=== PATIENT | male | born 1960 | race Caucasian/White ===

== ENCOUNTER 2022-08-15 11:58 | Outpatient (CLI) | payer OTHER, SELFPAY ==
--- OUTSIDE RECORDS SUMMARY | 2022-08-15 12:04 | XMS_ITS | Continuity of Care Document ---
Author Name [facility] Care Team Providers Care Mounting Inspector Name Role Phone [facility] Unavailable Unavailable Allergies, Adverse Reactions, Alerts Substance Category Reaction Severity Reaction type Status Date Reported Comments Source penicillins Drug Allergy Active 3 [facility] Family Medicine FM1,[facility] Family Medicine FM6
== END 2022-08-15 11:59 | disposition home or self-care (01) ==
PROVIDERS: PCP Family Medicine; Visit Provider Family Medicine
DX: Z00.00 Encounter for general adult medical examination without abnormal findings (principal); I10 Essential (primary) hypertension; Z12.5 Encounter for screening for malignant neoplasm of prostate; Z11.59 Encounter for screening for other viral diseases; Z13.6 Encounter for screening for cardiovascular disorders
CPT/HCPCS: 80053; 80061; 84153; 86803

== ENCOUNTER 2023-10-16 08:07 | Outpatient (CLI) | payer MEDICARE, SELFPAY ==
--- OUTSIDE RECORDS SUMMARY | 2023-10-16 08:10 | XMS_ITS | Continuity of Care Document ---
Author Organization [facility] Address [address] [place] [address] Phone Care Team Providers Care Pipe Layer Helper Name Role Phone Best SILVERMAN, Amijohnathan Unavailable Unavailable Allergies, Adverse Reactions, Alerts Substance Reaction Status Criticality Penicillins Active No Information Medications Medication Instructions Dosage Effective Dates (start - stop) Status Comments ACETAMINOPHEN (unknown strength) Not Available - Active Procedures Procedure Date Office/Outpatient Visit,Est, Mod 2018 X-Ray Exam Lower Spine 2-3 Views 2018 Postop Followup Visit X-Ray Exam Lower Spine 2-3 Views 2018 Pa Arthdsis Post/Posterolatrl/Postinterb ney Lumbar Remove Lumbar Spine Lamina, 1 Seg Pa Assist Remove Added Spine Lamina, 1 S eg Pa Assist Insert Spine Fixation, Posteri or PA Assist Insert interbody cage w/fusion Arthdsis Post/Posterolatrl/Postinterbody Lumbar Remove Lumbar Spine Lamina, 1 Seg Remove Added Spine Lamina, 1 Seg 2018 Insert Spine Fixation, Posterior 2018 Insert interbody cage w/fusion 19 Allograft, Spine Surg, Morselized Autograft, Spine Surgery, Local 019 Office/Outpatient Visit,New, Low 2018 X-Ray Exam Lwr Spine, Min 4 Views Feb-04 -2019 Office/Outpatient Visit,New, Mod 2014 Office/outpatient visit,new, mod 2010 Advance Directives Directive Yes / No Effective Date File Name No Information Encounters Encounter Description Practice Location Reason(s) For Visit Diagnoses Date Provider Providers Copied on Encounter [facility], [address], [place], [place], [id number], [place] tel:[phone] [facility] No Information 0 Mehbod Amir. [facility], [address], [place], [place], [id number] , [place]. tel:[phone] Office/Outpa tient Visit,Est, Mod [facility], [address], [place], [place], [address], [place] tel:[phone] [facility] Encounter for other specified surgical aftercare 9 Mehbod Amir. [facility], [address], [place], [place], [id number] , [place]. [phone] Referring Provider: [place] [address] [place], [address]. tel:[phone] [facility], [address], [place], [place], [id number], [place] tel:[phone] [facility] Encounter for other specified surgical aftercare 9 Mehbod Amir. [facility], [address], [place], [place], [address] , [place]. [phone] [facility]: [facility] [address] [place], [address]. tel:[phone] [facility], [address], [place], [place], [id number], [place] tel:[phone] [facility] No Information 9 Adrian Butts. [address] [place] [address] [address], [place], [place], [id number] , [place]. tel: [phone] Referring Provider: Amauri Bliss, [facility] [address] [place], [address]. tel:[phone] [facility], [address], [place], [place], [id number], [place] tel:[phone] [facility] No Information 9 Mehbod Amir. [facility], [address], [place], [place], [id number] , [place]. tel: [phone] Referring Provider: Amauri Bliss, [address], [address]. tel:[phone] Office/Outpa tient Visit,New, Low [facility], [address], [place], [place], [address], [place] tel:[phone] [facility] Spondylolisthe sis, lumbar region Fe 9 Mehbod Amir. [facility], [address], [place], [place], [address] , [place]. tel: [phone] Referring Provider: Amauri Bliss, [facility] [place], [address]. tel:[phone] Office/Outpa tient Visit,New, Mod [facility], [address], [place], [place], [address], [place] tel:[phone] [facility] OVERWEIGHTHype rtension, UnspecifiedAcq uired spondylolisthe sis 5 Mehbod Amir. [facility], [address], [place], [place], [address] , [place]. tel: [phone] Office/outpa tient visit,new, mod Z [facility], [address], [place], [address], [place] tel:[phone] [facility] No Information Jessica Sparrow. [facility], [address], [place], [place], [address] , [place]. [phone] Referring Provider: Fernanda Savage [address] [facility], [place], [address]. tel:[phone] Family History Family Member Type Diagnosis Age At Onset No Information Payers Payer name Insurance type Covered libertarian ID Authorbeatriza tiallen(s) [facility] [id number] Social History Type Description Quantity Date Captured Comments Sex Male Smoking Status No Information Chief Complaint And Reason For Visit No Information Reason For Referral Reason For Referral No Information Plan Of Treatment Date Type Action Status Future Order: Radiology Order AP -Vfg-[id number]-Gzw Lum (APLatFlExL), Ordered on: Ordered History Of Present Illness Encounter Date Complaint History Of Prese nt Illness No Information Functional Status Date Functional Assessmen t No Information Instructions Date Instruction Additional Infor loreta Weight Management Related to Ove yonathan Exercise education Related to Un specified Essential Hypertension Assessments Type Assessment Date No Information Patient Care Teams Name Effective Dates (start - stop) Status Members No Information
== END 2023-10-16 08:08 | disposition home or self-care (01) ==
PROVIDERS: PCP Family Medicine; Visit Provider Family Medicine
DX: E78.5 Hyperlipidemia, unspecified (principal); I10 Essential (primary) hypertension; Z12.5 Encounter for screening for malignant neoplasm of prostate
CPT/HCPCS: 80053; 80061; 82043; 82570; G0103

== ENCOUNTER 2023-10-25 13:48 | Outpatient (RCR) | payer MEDICARE, SELFPAY ==
--- NOTE | 2023-10-25 15:31 | PT.OPE ---
[facility] PT [facility] Outpatient Eval Start: 10/25/23 12:52 Freq: Status: Active Protocol: Document 10/25/23 15:29 CJT (Rec: 10/25/23 15:31 CJT [id number]) E-signed By Keyshawn Concepcion PT Physical Therapy Outpatient Evaluation Insurance Information Recert Due Date 01/23/24 Insurance Name Medicare B Medical Diagnosis M17.12 - L knee pain Treating Diagnosis M17.12 - L knee pain Referring Miranda Brown MD Subjective Subjective Pt presents with complaints of L knee pain. 6 weeks ago, Pt reports he was playing trucks with grandson on the floor and knee pain started after this. Also was having knee pain with walking at this time so discontinued walking. Was told arthritis may be developing per doctor. Pt as not had knee pain for a week now. Pt lower back is now hurting. Has hx of spinal fusion in 2019. Walks 2.5-3 miles daily and has not in the past month. Pt goal is to start walking again with no pain. Patient notices small bump on the medial L knee that is tender to palpation. Also reports hip soreness. Pain Comments 0/10 today pain at its worst with walking 3 weeks ago. Date of Last Physician Visit 10/16/23 Current Work Status Retired Preferred Name Casimiro Precautions Therapy Limitations/Systems Review Not Limited Objective Other/Pertinent Objective Lumbar ROM Extension - WNL Flexion - WNL (touching big toe) R/L Side Bend - WNL R/L Rotation - NT R Hip ROM Flexion - WNL IR/ER - WNL Extension - WNL L Hip ROM Flexion - WNL IR/ER - WNL Extension - WNL R knee ROM - 4-0-151 L knee ROM - 3-0-150 R Hip Strength Flexion - 4/5 MMT Abduction - 5/5 MMT IR - 5/5 MMT ER - 5/5 MMT Extension - 4+/5 MMT L Hip Strength Flexion - 4/5 MMT Abduction - 5/5 MMT IR - 5/5 MMT ER - 5/5 MMT Extension - 4+/5 MMT R knee Extension - 5/5 MMT R Knee Flexion - 5/5 MMT L knee Extension - 5/5 MMT L knee Flexion - 5/5 MMT R ankle DF - 5/5 MMT L ankle DF - 5/5 MMT Palpation: pt reports pain/ tenderness with palpation to the L medial femoral condyle Special Testing SLR: neg Debi's: pos Hamstring: negative Assessment Assessment/Impression Casimiro is a very pleasant 63 year old male who presents to our clinic for evaluation and treatment of L knee pain. Patient had no symptoms or pain in knee upon arrival of appointment and remained asymptomatic throughout evaluation. Pts LE strength is well within normal limits, testing 5/5 MMT in most planes this date (see objective). Pts anterior thigh is a bit tight with positive Debi's test bilaterally. Pt did struggle with walking lunges this date so encouraged use of hands for balance when performing at home. Exercises were given to address strength deficits and decrease quad tightness. Pt recommended to try exercises given for a few weeks and return if pain increased or there were any changes. Pt gives verbal understanding to these instructions. The nature of the pts condition was explained and all questions were answered to the pts satisfaction. Skilled PT services are medically necessary to address deficits and return patient to highest level of function. Recommend physical therapy sessions 1/ week for 4 weeks. Pt agrees with this plan and notes that he would prefer to return as needed. If pt elects to not return to PT in next 30 days, this note will serve as pts d/ c note. Printout of HEP was given for I completion and pt gives verbal understanding of each exercise. Co-Signed [place] [id number] Primary Functional Limitations Walking Plan of Care Rehabilitation Potential Excellent Physical Therapy Goals STG: To be completed in 3 weeks: 1. Patient will report absence of L knee pain with ambulation, so that he may go for walks for light exercise with his . LTG - To be completed in 4 weeks: 1. Patient will be I with HEP in order to I manage progression of symptoms. Treatment Plan/Direct Interventions Joint Mobilization,Manual Therapy,Therapeutic Exercises Frequency/Duration 1/week for 4 weeks Patient Will Be Discharged From Therapy Completion of LTG(s),Skills Plateau,Independent w/HEP, Independently Progressing Evaluation Billing Untimed Code Treatment Minutes 40 PT Eval No Charge No Complexity Low Student Supervision Licensed PT Directed/Approved Treatment, Reviewed POC with Patient,Made Contact with Patient, Participated in Treatment Documentation Reviewed By Gas Blender Yes Certification Information Initial Certification Date 10/25/23 Ending Certification Date 01/23/24 Provider Signature Required Yes Provider Signature Shows Agreement With POC & Medical Necessity Physician NPI Number Write NPI# Here Physician Comment/Change : Physician Signature & Date Requested Please Sign/Date Here
== END 2023-12-28 13:57 | disposition home or self-care (01) ==
PROVIDERS: PCP Family Medicine; Visit Provider Family Medicine
DX: M25.562 Pain in left knee (principal); Z51.89 Encounter for other specified aftercare
CPT/HCPCS: 97110; 97161

== ENCOUNTER 2024-11-11 13:32 | Outpatient (CLI) | payer MEDICARE, SELFPAY | END 2024-11-11 13:33 | disposition home or self-care (01) | PROVIDERS: PCP Family Medicine; Visit Provider Family Medicine | DX: I10 Essential (primary) hypertension (principal); E78.5 Hyperlipidemia, unspecified; N52.9 Male erectile dysfunction, unspecified; G47.00 Insomnia, unspecified; Z12.5 Encounter for screening for malignant neoplasm of prostate | CPT/HCPCS: 80053; 80061; 82043; 82570; G0103 ==

== ENCOUNTER 2024-11-25 09:45 | Outpatient (CLI) | payer MEDICARE, SELFPAY ==
--- NOTE | 2024-11-25 10:00 | CRLHL7_ITS ---
For Patients: As a result of the Century Cures Act, medical imaging exams and procedure reports are released immediately into your electronic medical record. You may view this report before your referring provider. If you have questions, please contact your health care provider. INDICATION: Lung cancer screening. History of smoking. TECHNIQUE: Low-dose lung cancer screening non-contrast CT chest. Dose reduction techniques were used. COMPARISON: None. FINDINGS: NODULES: 4 millimeter nodule left lower lobe, 3/107. LUNGS AND PLEURA: Biapical pleural-parenchymal scarring. MEDIASTINUM: No adenopathy. CORONARY ARTERY CALCIFICATION: Minimal. LIMITED UPPER ABDOMEN: Small stones in the gallbladder. MUSCULOSKELETAL: No fracture. IMPRESSION: 4 millimeter left lower lobe pulmonary nodule. LUNG-RADS CATEGORY: 2: Benign. RADIOLOGIST RECOMMENDATION: Continue annual screening, if eligible, with low-dose CT chest in 12 months. Please note that all CT scans at this facility use dose modulation, iterative reconstruction, and/or weight-based dosing when appropriate to reduce radiation dose to as low as reasonably achievable. Dictated by Yony Curry MD @ 11/25/2024 11:09:00 AM (Electronically Signed)
== END 2024-11-25 09:46 | disposition home or self-care (01) ==
LOC: CT 09:46
PROVIDERS: PCP Family Medicine; Visit Provider Family Medicine
DX: Z12.2 Encounter for screening for malignant neoplasm of respiratory organs (principal); R91.8 Other nonspecific abnormal finding of lung field; Z72.0 Tobacco use; E78.5 Hyperlipidemia, unspecified; I10 Essential (primary) hypertension
CPT/HCPCS: 71271

== ENCOUNTER 2024-12-03 13:45 | Outpatient (CLI) | payer MEDICARE, SELFPAY | END 2024-12-03 13:46 | disposition home or self-care (01) | LOC: FRMREF 13:46 | PROVIDERS: PCP Family Medicine; Visit Provider Physician Assistant Medical | DX: R19.7 Diarrhea, unspecified (principal) | CPT/HCPCS: 80053 ==

== ENCOUNTER 2024-12-04 09:18 | Outpatient (CLI) | payer MEDICARE, SELFPAY | END 2024-12-04 09:19 | disposition home or self-care (01) | LOC: NFLDREF 12-05 02:58 | PROVIDERS: PCP Family Medicine; Referring Provider Family Medicine; Visit Provider Family Medicine | DX: R19.7 Diarrhea, unspecified (principal) | CPT/HCPCS: 87493; 87505; 87507 ==

== ENCOUNTER 2024-12-18 13:00 | Outpatient (CLI) | payer MEDICARE, SELFPAY | END 2024-12-18 13:01 | disposition home or self-care (01) | LOC: NFLDREF 12-23 14:39 | PROVIDERS: PCP Family Medicine; Referring Provider Family Medicine; Visit Provider Nurse Practitioner Family | DX: R19.7 Diarrhea, unspecified (principal); A07.4 Cyclosporiasis | CPT/HCPCS: 87493 ==

== ENCOUNTER 2025-02-28 09:58 | Emergency (ER) | payer MEDICARE, SELFPAY ==
[2025-02-28] VITALS (12 sets, daily range): BP systolic 155–187; BP diastolic 88–114; PULSE 61–76; RESP 18; TEMP 36.8; O2SAT 95–98; BMI 26.9
--- OUTSIDE RECORDS SUMMARY | 2025-02-28 10:01 | XMS_ITS | Clinical Summary ---
Author Organization [facility] Address [address] [place] [address] Care Team Providers Care Supervisor Customer Services Name Role Phone Amauri Galdamez MD Primary Care Provider [phone] Allergies Active Allergy Reactions Criticality Noted Date Comments Penicillins *Unknown - Childhood Rxn 2014 Medications oxyCODONE (ROXICODONE) 5 mg immediate release tabletIndicati ons:Post-op pain Take 1-2 tablets by mouth every 4 hours if needed for Pain (one tab for pain 3-6 out of 10. 2 tabs for pain 7-10 out of 10.) 60 tablet 10/18/2018 9:19 AM CDT 9 Active acetaminophen (TYLENOL) 325 mg tabletIndicati ons:Post-op pain Take 2 tablets by mouth every 6 hours. Max acetaminophen dose: 4000mg in 24 hrs. 100 tablet 10/18/2018 9:19 AM CDT 9 Active sennosides-doc usate, 8.6-50 mg, (SENOKOT S) 8.6-50 mg tabletIndicati ons:Constipati on due to opioid therapy Take 1 tablet by mouth 2 times daily. Take for as long as needing narcotic medicines for pain control. Stop if loose stools develop. 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 ( decreased vision ) 199110/02/2018 Overview (10/02/2018): c Multiple lipomas 10/02/2018 Former smoker quit 201210/02/2018 Lumbar spinal stenosis 10/27/2014 Spondylolisthesis at L4-L5 level 10/27/2014 Lumbar radicular pain 10/27/2014 THANH 03/16/2010 on cpap machine 03/20/2010 Immunizations Immunization Administration Dates Next Due Tdap 05/15/2009 Family History Medical History Relation Name Comments Other Father suarez's lung 8 6 Hypertension Mother Relation Name Status Comments Father Mother Social History Tobacco Use Types Packs/Day Years Used Date Smoking Tobacco: Never Smokeless Tobacco: Never Tobacco Cessation:Counseling Given: Yes Alcohol Use Standard Drinks/Week Comments Yes 0 (1 standard drink = 0.6 oz pur e alcohol) 12 pack/year. 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 Gender Identity Not on file Sexual Orientation Not on file Obstetrics History Last Filed Vital Signs Vital Sign Reading Time Taken Comments Blood Pressure 124/63 10/18/2018 7:49 AM CDT Pulse 72 10/18/2018 7:49 AM CDT Temperature 36.8 C (98.3 F) 10/18/2018 7:49 AM CDT Respiratory Rate 16 10/18/2018 7:49 AM CDT Oxygen Saturation 90% 10/18/2018 7:49 AM CDT Inhaled Oxygen Concentration - - Weight 100.4 kg (221 lb 5.5 oz) 10/16/2018 6:23 AM CDT Height 185.4 cm (6' 1) 10/16/2018 6:23 AM CDT Body Mass Index 29.2 10/16/2018 6:23 AM CDT Plan of Treatment Health Maintenance Due Date Last Done Comments Hepatitis C screening for ag e 18-79 1976 Colonoscopy through age 75 09/30/2003 Lipids for age 45-75 09/30/2003 Pneumococcal series for age 50+ (1 of 1 - PCV) 2008 Zoster (shingles) series for age 50+ (1 of 2) 2008 Depression screening for age 12+ 12/05/2017 12/05/2016 Tetanus booster 05/15/2019 05/15/2009 BMI (ht and wt on same day) for age 18+ 10/03/2019 10/02/2018, 12/05/2016 COVID-19 vaccine series (2023- season) 2025 Influenza Vaccine (#1) 2025 RSV vaccine for adults or (1 - 1-dose 75+ series) 2033 Hepatitis B series for 19+ Aged Out N o longer eligible based on patient's age to complete this topic Medical Devices Implanted Type Area General Milling Superintendent Device Identifier Shelf Expiration Date Model / Serial / Lot [id number] 1-4mm 30cc Med[employer]onic Chips Canclls Freeze Dried Implanted:Qty: 1 on 10/16/2018 by Trista Jewell MD at [facility] Explanted:at [facility] (Quantity not on file) Spine [employer] Spine/Ortho 03/29/2023 [id number] / [id number] / [id number] ne Matrix 3cc [employer] Dbf Putty Dbm Implanted:Qty: 1 on 10/16/2018 by Trista Jewell MD at [facility] Explanted:at [facility] (Quantity not on file) Spine [employer] Spine/Ortho 06/13/2020 [id number] / [id number] / Spacer Lmbr [id number] [place] Convex Stra Tlif - [id number] Implanted:Qty: 1 on 10/16/2018 by Trista Jewell MD at [facility] Spine [employer] 12/07/2025 [id number] / / [id number] Screw Lmbr Post 6.5x45mm Vitality Va - [id number] Implanted:Qty: 4 on 10/16/2018 by Trista Jewell MD at [facility] Spine [employer] Spine [id number] 75# / / Set Screw Lmbr 5.5-6mm Vitality Torque - [id number] Implanted:Qty: 4 on 10/16/2018 by Trista Jewell MD at [facility] Spine [employer] Spine [id number] 01# / / Javan Lmbr 45x5.5mm Vitality Cvd Titnm - [id number] Implanted:Qty: 2 on 10/16/2018 by Trista Jewell MD at [facility] Spine [employer] Spine [id number] 06# / / Cnnctr Lmbr 51-70mmx5.5 Wide Vitality Transverse Adjust - [id number] Implanted:Qty: 1 on 10/16/2018 by Trista Jewell MD at [facility] Spine [employer] Spine [id number] 04# / / Advance Directives * Full Code (Latest Code Status on File) Date Activated Date Inactivated Comments 10/16/2018 12:45 PM 10/18/2018 12:42 PM Care Teams Supervisor Customer Services Relationship Specialty Start Date End Date Amauri Galdamez MD PCP - General Family Practice 12/05/16
--- NOTE | 2025-02-28 11:01 | ED.HA ---
HPI - Headache General Time Seen by Provider: 11:01 Date Seen: 02/28/25 Chief Complaint: Headache/Migraine Stated Complaint: High BP Time Seen by Provider: 02/28/25 11:01 Source: patient and RN notes reviewed Mode of arrival: ambulatory Limitations: no limitations History of Present Illness HPI Narrative: Mr. Louis is a very pleasant 64-year-old gentleman with history of hypertension and hyperlipidemia not currently on a blood thinner who comes to the emergency room after being told by [facility] that he needs to be seen for elevated blood pressures. Blood pressures that they found concerning or 151/102 and 170/103 from this morning's measurements. Patient has a known history of hypertension but has actually not been on medications again until recently. He presents today with intermittent basilar headache for the past 2 weeks in the morning and then before going to bed. He notes no visual changes no numbness or tingling or chest pain. Patient notes that in March of 2020 for while on losartan he actually had low blood pressure. His medications were adjusted. In October of 2024 started experiencing low blood pressure symptoms once again in the form of dizziness and tunnel vision and thus he discontinued his blood pressure medications. His blood pressure without the medications has been okay. Then a 5 week course of diarrhea while in [place] occur that he thinks was C diff but in looking through the notes it looks like it was a cyclosporin species. He was treated with a number of antibiotics. Over the past 2 weeks his headaches have involved a occipital area and they are improved with 3 tablets of Advil pain. He restarted his blood pressure medication which was losartan 25 mg. He notes that he actually increased it to twice a day as he thinks it does help his blood pressure and his headaches. He does not have a history of migraines or frequent headaches and thus this is unusual for him. Do not appear to be positional. He has not had fever chills cough cold congestion and runny nose. He has a remote history of COVID infection and had been vaccinated. States it was relatively mild case. However, since that time he has experienced more shortness of breath with exertion and that seems to be a little bit worse in the past few weeks. He has not had a cough. He denies any chest pain. Of note, he does endorse jaw claudication noting that when he does chew he seems to get tired. He also endorses pain over the temporal area. Patient also states that he has had some pain in the left lateral thigh. It is not present at this time. Has chronic tingling in his feet secondary to spinal issues. Quit smoking 14 years ago. Occasional alcoholic beverage. No recent falls trauma or in home caregiver. Related Data Previous Rx's ?Medication ?Instructions ?Recorded losartan 25 mg tablet 25 mg PO QDAY #90 tabs 11/11/24 rosuvastatin 40 mg tablet (Crestor) 40 mg PO QDAY #90 tabs 11/11/24 tadalafil 10 mg tablet (Cialis) 10 mg PO QDAY PRN sexual activity 11/11/24 #30 tabs tamsulosin 0.4 mg capsule (Flomax) 0.4 mg PO . bid #180 caps 11/11/24 trazodone 50 mg tablet 25 - 50 mg (0.5 - 1 x 50 mg) PO 11/11/24 QHS PRN insomnia #120 tabs ciprofloxacin HCl 500 mg tablet 500 mg PO BID #14 tabs 12/09/24 (Cipro) amlodipine 2.5 mg tablet 2.5 mg PO DAILY #14 tabs 02/28/25 Allergies Allergy/AdvReac Type Severity Reaction Status Date / Time penicillin V Allergy Intermediate Hives Verified 02/28/25 10:08 lisinopril Allergy Mild Cough Verified 02/28/25 10:08 Review of Systems Status of ROS: Reports: 10 or more systems reviewed and unremarkable except as noted in History and below Narrative: No recent in home caregiver. Const: Denies: fever, chills or fatigue Eyes: Denies: change in vision, blurry vision or seeing flashes ENMT: Denies: throat pain, neck pain or nasal congestion Cardio: Reports: shortness of breath with exertion; Denies: chest pain, edema, swelling of feet/ankles or lightheadedness Resp: Reports: shortness of breath; Denies: cough or wheezing GI: Denies: abdominal pain, nausea, vomiting or diarrhea : Denies: painful urination, urinary frequency or blood in urine Musculo: Reports: extremity pain; Denies: back pain, neck pain or extremity swelling Integ/Breast: Denies: rash Neuro: Reports: headache; Denies: numbness in extremities or weakness in extremities Endo: Denies: fatigue Allergy/Immuno: Denies: wheezing PFSH PFSH Medical History Fusion of spine, lumbar region ?M43.26 - Fusion of spine, lumbar region (ICD-10) Obstructive sleep apnea on CPAP ?G47.33 - Obstructive sleep apnea (adult) (pediatric) (ICD-10) ?Z99.89 - Dependence on other enabling machines and devices (ICD-10) Lower back pain ?M54.50 - Low back pain, unspecified (ICD-10) Surgical History History of tonsillectomy ?Z90.89 - Acquired absence of other organs (ICD-10) History of corneal transplant ?Z94.7 - Corneal transplant status (ICD-10) History of appendectomy ?Z90.49 - Acquired absence of other specified parts of digestive tract (ICD-10) Family History Father Lung disease Social History Narrative: Former smoker What is your current living situation?: I presently have a place to live Problems where you live: no known problems In the past 12 months, utilities in danger of being shut off: no In past 12 months, lack of transportation kept you from medical appts, meetings, work, or getting things needed for daily living: no In the past 12 mos, have been you worried that your food would run out before you had money to buy more?: never true In the past 12 mos, the food you bought just didn't last and you didn't have money to buy more?: never true Smoking Status: Former smoker How often do you have a drink containing alcohol: 4 or more times a week How many standard drinks containing alcohol do you have on a typical day: 1 or 2 AUDIT-C Alcohol total score: 4 Non-prescribed substance use: denies use How often does anyone, including family, friends and others, physically hurt you: never How often does anyone, including family, friends and others, insult or talk down to you: never How often does anyone, including family, friends and others, threaten you with harm: never How often does anyone, including family, friends and others, scream or curse at you: never Exam Narrative: Exam Narrative: Alert and oriented. A detailed log of his blood pressures. Notes the blood pressures this morning were taken prior to his use of losartan to see where they would be. EOM is full pupils equal round. Stated photophobia but no obvious signs of this. Face symmetrical with eyebrow raise smile tongue is midline. TMs bilaterally obscured by cerumen. Neck is supple. No midline cervical tenderness. Heart with regular rate and rhythm. Lungs are clear bilaterally. Abdomen soft nontender. Lower extremities without edema. Upper and lower sensation and movement in strength intact. Const: Vital Signs, click to edit/add: Vital Signs - 24 hr 02/28/25 10:10 02/28/25 12:39 02/28/25 12:40 Temperature 98.2 F Pulse Rate 66 65 Pulse Rate [Pulse Oximeter] 76 Respiratory Rate 18 Blood Pressure 159/96 H 159/96 H Blood Pressure [Ri ght Upper Arm] 155/88 H Pulse Oximetry 98 96 97 Oxygen Delivery Me thod Room Air 02/28/25 12:45 02/28/25 12:48 02/28/25 13:00 Temperature Pulse Rate 61 63 63 Pulse Rate [Pulse Oximeter] Respiratory Rate Blood Pressure 170/93 H Blood Pressure [Ri ght Upper Arm] Pulse Oximetry 96 97 98 Oxygen Delivery Me thod 02/28/25 13:02 02/28/25 13:03 02/28/25 13:15 Temperature Pulse Rate 64 65 61 Pulse Rate [Pulse Oximeter] Respiratory Rate Blood Pressure 163/95 H Blood Pressure [Ri ght Upper Arm] Pulse Oximetry 95 96 95 Oxygen Delivery Me thod 02/28/25 13:17 02/28/25 13:30 02/28/25 13:32 Temperature Pulse Rate 68 63 Pulse Rate [Pulse Oximeter] Respiratory Rate Blood Pressure 160/95 H 187/114 H Blood Pressure [Ri ght Upper Arm] Pulse Oximetry 96 98 Oxygen Delivery Me thod Documenting provider has reviewed patient's vital signs: yes Course Course ED Course: Patient presenting today with moderately elevated blood pressures with no evidence of a hypertensive urgency or emergency. Denies chest pain. Shortness of breath has been ongoing but slightly worse lately. No evidence of tachycardia or hypoxia to indicate worries regarding PE. Differential diagnosis includes but is not limited to temporal arteritis, viral infection, cardiac arrhythmia, anxiety, electrolyte imbalance with increased dose of an ARB. , anxiety/tension headache. Will check EKG as well as troponin for possible cardiac origin. I am wondering if this is elevated blood pressure is in response to the discomfort he is feeling. He further is overdosing himself on his ARB which raises the possibility of an electrolyte imbalance and or kidney pathology. Would also recommend CBC, comprehensive, ESR, CRP. Given the shortness of breath which has increased over the past few weeks but ongoing since COVID infection will check two view x-ray as well. Vital Signs Vital signs: Initial Vital Signs Temperature 98.2 F 02/28/25 10:10 Temperature Source Temporal Artery Scan 02/28/25 10:10 Pulse Rate 76 02/28/25 10:10 Respiratory Rate 18 02/28/25 10:10 Blood Pressure 155/88 H 02/28/25 10:10 Blood Pressure Mean 110 H 02/28/25 10:10 Pulse Oximetry 98 02/28/25 10:10 Oxygen Delivery Method Room Air 02/28/25 10:10 Vital Signs Temperature 98.2 F 02/28/25 10:10 Pulse Rate 76 02/28/25 10:10 Respiratory Rate 18 02/28/25 10:10 Blood Pressure 155/88 H 02/28/25 10:10 Pulse Oximetry 98 02/28/25 10:10 Oxygen Delivery Method Room Air 02/28/25 10:10 Temperature 98.2 F 02/28/25 10:10 Pulse Rate 63 02/28/25 13:30 Respiratory Rate 18 02/28/25 10:10 Blood Pressure 187/114 H 02/28/25 13:32 Pulse Oximetry 98 02/28/25 13:30 Oxygen Delivery Method Room Air 02/28/25 10:10 MDM - Headache MDM Narrative Medical decision making narrative: 1. Headache-patient has a intermittent headaches in the morning and then prior to bedtime. No visual changes chest pain. Patient has a negative sed rate and CRP and thus I do not think we have concerns about temporal arteritis at this time. Ibuprofen does work for his headache. I am not entirely convinced the elevated blood pressures are causing the symptoms but I have no evidence of COVID, cardiac arrhythmia to explain his symptoms. He has no history of underlying trauma and no neurological deficits at this time to indicate further imaging. I did state that if he should have increasing headache, vomiting, visual changes he would need to return to the emergency room for further evaluation troponin is negative. With intermittent symptoms over the last 2 weeks I do feel that 1 troponin was sufficient to rule out underlying acute coronary event. 2. Hypertension-currently on losartan he has been increasing this medication to double dose. I would recommend returning to the 25 mg daily but adding amlodipine 2.5 mg daily. Him continue to follow his blood pressures but indicated that taking his blood pressure without his medications is not very helpful to us as we would want to see if they were working. Would recommend also sitting for 5 minutes before taking the blood pressure. Would have him monitor these and follow up with his primary doctor [place] for follow-up. Did state that she may change that medication or increase the dosing. I did try to contact Dr. Schafer at the clinic but she is not in today. Fortunately no evidence of acute kidney failure or hyperkalemia given the increased dose of losartan. 3. Disposition-home at this time. Return for onset of new symptoms, worsening symptoms and as needed. Medical Records Attestation: I reviewed the patient's medical records. Lab Data Attestation: I reviewed the patient's lab results. Labs: Lab Results 02/28/25 02/28/25 02/28/25 Range/Units 11:21 11:32 11:35 WBC 5.87 (4.50-11.00) K/uL RBC 5.43 (4.30-5.90) m/uL Hgb 15.1 (13.5-17.5) gm/dL Hct 45.8 (37.0-53.0) % MCV 84 (80-100) fL MCH 28 (26-34) pg MCHC 33 (32-36) gm/dL RDW Coeff of Jeane 13.0 (11.5-15.5) % Plt Count 187 (140-440) K/uL Neut % (Auto) 60.3 (42.0-72.0) % Lymph % (Auto) 30.3 (20-44) % [place] % (Auto) 7.2 (0.0-11.0) % Eos % (Auto) 1.7 (0.0-7.0) % Baso % (Auto) 0.3 (0.0-3.0) % Neut # (Auto) 3.54 (1.7-7.0) K/uL Lymph # (Auto) 1.78 (0.90-2.90) K/uL [place] # (Auto) 0.40 (0.00-0.90) K/UL Eos # (Auto) 0.10 (0.00-0.50) K/uL Baso # (Auto) 0.02 (0.00-0.30) K/uL Abs Immat Gran (auto) 0.01 (0.00-0.30) K/uL Imm/Tot Granulo (auto) 0.2 % ESR 5 (2-15) mm/hr Sodium 135 (135-149) mmol/L Potassium 4.2 (3.6-5.1) mmol/L Chloride 103 (96-114) mmol/L Carbon Dioxide 29 (20-32) mmol/L Anion Gap 3 L (7-15) mEq/L BUN 16 (7-30) mg/dL Creatinine 1.1 (0.5-1.5) mg/dL Estimated Creat Clear 74.65 Estimated GFR 74 ml/min Glucose 105 (60-115) mg/dL Calcium 9.0 (8.4-10.6) mg/dL Total Bilirubin 0.7 (0.1-1.5) mg/dL AST 44 H (12-35) U/L ALT 45 (4-50) U/L Alkaline Phosphatase 72 (40-150) U/L Total Creatine Kinase 82 (54-186) U/L C-Reactive Protein < 0.5 L (0.5-1.0) mg/dL Total Protein 7.0 (6.0-8.3) g/dL Albumin 4.2 (3.3-5.0) g/dL Urine Color (Yellow) Urine Appearance (Clear) Urine pH (5.0-8.5) Ur Specific Gaffney (1.000-1.030) Urine Protein (Negative) Urine Glucose (UA) (Negative) Urine Ketones (Negative) Urine Blood (Negative) Urine Nitrite (Negative) Urine Bilirubin (Negative) Urine Urobilinogen (0.2-1.0) Ur Leukocyte Esterase (Negative) Urine RBC (0-2) Urine WBC (0-5) Ur Squamous Epith Cells (None-Few) Urine Bacteria (None) SARS-CoV-2 (PCR) Negative SARS-CoV-2 (Negative) POC Troponin I 0.00 L (0.01-0.04) ng/ml 02/28/25 Range/Units 11:45 WBC (4.50-11.00) K/uL RBC (4.30-5.90) m/uL Hgb (13.5-17.5) gm/dL Hct (37.0-53.0) % MCV (80-100) fL MCH (26-34) pg MCHC (32-36) gm/dL RDW Coeff of Jeane (11.5-15.5) % Plt Count (140-440) K/uL Neut % (Auto) (42.0-72.0) % Lymph % (Auto) (20-44) % [place] % (Auto) (0.0-11.0) % Eos % (Auto) (0.0-7.0) % Baso % (Auto) (0.0-3.0) % Neut # (Auto) (1.7-7.0) K/uL Lymph # (Auto) (0.90-2.90) K/uL [place] # (Auto) (0.00-0.90) K/UL Eos # (Auto) (0.00-0.50) K/uL Baso # (Auto) (0.00-0.30) K/uL Abs Immat Gran (auto) (0.00-0.30) K/uL Imm/Tot Granulo (auto) % ESR (2-15) mm/hr Sodium (135-149) mmol/L Potassium (3.6-5.1) mmol/L Chloride (96-114) mmol/L Carbon Dioxide (20-32) mmol/L Anion Gap (7-15) mEq/L BUN (7-30) mg/dL Creatinine (0.5-1.5) mg/dL Estimated Creat Clear Estimated GFR ml/min Glucose (60-115) mg/dL Calcium (8.4-10.6) mg/dL Total Bilirubin (0.1-1.5) mg/dL AST (12-35) U/L ALT (4-50) U/L Alkaline Phosphatase (40-150) U/L Total Creatine Kinase (54-186) U/L C-Reactive Protein (0.5-1.0) mg/dL Total Protein (6.0-8.3) g/dL Albumin (3.3-5.0) g/dL Urine Color Yellow (Yellow) Urine Appearance Clear (Clear) Urine pH 8.0 (5.0-8.5) Ur Specific Gaffney 1.015 (1.000-1.030) Urine Protein Negative (Negative) Urine Glucose (UA) Negative (Negative) Urine Ketones Negative (Negative) Urine Blood Negative (Negative) Urine Nitrite Negative (Negative) Urine Bilirubin Negative (Negative) Urine Urobilinogen 0.2 (0.2-1.0) Ur Leukocyte Esterase Negative (Negative) Urine RBC 0-2 (0-2) Urine WBC 0-2 (0-5) Ur Squamous Epith Cells None (None-Few) Urine Bacteria None (None) SARS-CoV-2 (PCR) (Negative) POC Troponin I (0.01-0.04) ng/ml Imaging Data Chest x-ray: Attestation: I have reviewed the pertinent imaging results. My impression: By my read no evidence of infiltrates. Radiologist's impression: No lobar consolidation, effusion or pneumothorax. Cardiac size is within normal limit without pulmonary edema. No acute osseous abnormality. ECG Data Attestation: I personally reviewed and interpreted this ECG as follows: ECG interpretation date: 02/28/25 Interpretation: EKG by my read shows sinus bradycardia at a rate of 59. T-wave inversion in 3 and flattening in AVF without any other acute or reciprocal changes noted. QT and MD intervals within normal limits. Discharge Plan Discharge Clinical Impression: Hypertension Headache Qualifiers: Headache type: unspecified Headache chronicity pattern: unspecified pattern Intractability: not intractable Qualified Code(s): R51.9 - Headache, unspecified Patient Disposition: Home, Self-Care Condition: Improved Additional Instructions: Use losartan 1 tablet daily as prescribed. Add amlodipine 2.5 mg daily. I would continue to monitor your blood pressure but take your blood pressure after you have taken your blood pressure medications so that we knows that they may be working. I would also have you sit for 5 minutes before blood pressure is done. Follow-up with Dr. Schafer next week for recheck. She may wish to change the medication out entirely or increase the dose based on your blood pressure numbers. Keep well hydrated. Return to the ER if you have increasing headache, difficulty with speech chest pain visual changes and as needed. Prescriptions: New amlodipine 2.5 mg tablet 2.5 mg PO DAILY Qty: 14 0RF No Action trazodone 50 mg tablet 25 - 50 mg PO QHS PRN (Reason: insomnia) Qty: 120 3RF tadalafil [Cialis] 10 mg tablet 10 mg PO QDAY PRN (Reason: sexual activity) Qty: 30 12RF Rx Instructions: administer approximately 30min before sexual activity; do not use more than 1 dose per 24hrs rosuvastatin [Crestor] 40 mg tablet 40 mg PO QDAY Qty: 90 3RF losartan 25 mg tablet 25 mg PO QDAY Qty: 90 3RF tamsulosin [Flomax] 0.4 mg capsule 0.4 mg PO . bid Qty: 180 3RF ciprofloxacin HCl [Cipro] 500 mg tablet 500 mg PO BID Qty: 14 0RF Follow Up/Referrals: Clau Schafer MD [Primary Care Provider, Family Practice] Stand Alone Forms: [facility] Info Instructions
--- NOTE | 2025-02-28 11:21 | CRLHL7_ITS ---
For Patients: As a result of the Century Cures Act, medical imaging exams and procedure reports are released immediately into your electronic medical record. You may view this report before your referring provider. If you have questions, please contact your health care provider. INDICATION: Shortness of breath with exertion. TECHNIQUE: Chest 2 views. COMPARISON: CT chest November 2024 FINDINGS/ IMPRESSION: No lobar consolidation, effusion or pneumothorax. Cardiac size is within normal limit without pulmonary edema. No acute osseous abnormality. Dictated by Power Evans MD @ 02/28/2025 11:51:18 AM (Electronically Signed)
[2025-02-28 11:45] LABS: Hematocrit* 45.8 % (37.0-53.0); Hemoglobin* 15.1 gm/dL (13.5-17.5); Immature Granulocytes Abs Auto 0.01 K/uL (0.00-0.30); Immature Granulocytes Pct Auto 0.2 %; Lymphocytes Absolute Auto 1.78 K/uL (0.90-2.90); Mean Corpuscular HGB Conc 33 gm/dL (32-36); Mean Corpuscular Hemoglobin 28 pg (26-34); Mean Corpuscular Volume 84 fL (80-100); RDW Coefficient of Variation % 13.0 % (11.5-15.5); Red Blood Count* 5.43 m/uL (4.30-5.90); White Blood Count* 5.87 K/uL (4.50-11.00)
[2025-02-28 11:48] LABS: Slide Review Reflex No
[2025-02-28 11:50] LABS: Albumin* 4.2 g/dL (3.3-5.0); Chloride* 103 mmol/L (96-114); Potassium* 4.2 mmol/L (3.6-5.1); Sodium* 135 mmol/L (135-149)
[2025-02-28 11:53] LABS: Alanine Aminotransferase* 45 U/L (4-50); Alkaline Phosphatase* 72 U/L (40-150); Anion Gap 3 mEq/L (7-15); Aspartate Amino Transferase* 44 U/L (12-35); Bilirubin Total* 0.7 mg/dL (0.1-1.5); Blood Urea Nitrogen* 16 mg/dL (7-30); Calcium* 9.0 mg/dL (8.4-10.6); Carbon Dioxide* 29 mmol/L (20-32); Creatine Kinase* 82 U/L (54-186); Creatinine* 1.1 mg/dL (0.5-1.5); Est. Creatinine Clearance* 74.65; Estimated Glomerular Filt Rate 74 ml/min; Glucose* 105 mg/dL (60-115); Total Protein* 7.0 g/dL (6.0-8.3)
[2025-02-28 11:54] LABS: Appearance Urine Clear (Clear)
[2025-02-28 11:57] LABS: Troponin, Point-of-Care* 0.00 ng/ml (0.01-0.04)
[2025-02-28 12:09] LABS: SARS PCR* Negative SARS-CoV-2 (Negative)
[2025-02-28 12:49] LABS: Erythrocyte SedimentationRate* 5 mm/hr (2-15)
== END 2025-02-28 13:41 | disposition home or self-care (01) ==
PROVIDERS: Emergency Provider Family Medicine; PCP Family Medicine
DX: I10 Essential (primary) hypertension (principal); R51.9 Headache, unspecified; R06.02 Shortness of breath; R00.1 Bradycardia, unspecified; Z87.891 Personal history of nicotine dependence; Z79.899 Other long term (current) drug therapy
CPT/HCPCS: 36415; 71046; 80053; 81001; 82550; 84484; 85025; 85651; 86140; 87635; 93005; 99284; 99285